=== PATIENT | male | born 1970 | race Caucasian/White ===

== ENCOUNTER 2024-03-03 13:48 | Emergency (ER) | payer OTHER ==
[~2024-03-03] VITALS: Ht 167.6 cm; Wt 149.7 kg
[2024-03-03 13:55] VITALS: BP 142/83; PULSE 74; RESP 18; TEMP 98.5; O2SAT 97
[2024-03-03] MEDS ORDERED: NAPR-1704 PO (14:31)
[2024-03-03] MEDS ORDERED: GABA300C PO (14:31)
[2024-03-03] MEDS: GABAPENTIN 300 MG CAP PO ONE (14:38)
[2024-03-03] MEDS: KETOROLAC 30 MG/ML VIAL IM ONE (14:39)
[2024-03-03 14:57] VITALS: BP 135/82; PULSE 66; RESP 16; TEMP 98.1; O2SAT 99
== END 2024-03-03 14:57 | disposition home or self-care (01) ==
LOC: MED 13:48
DX: M79.2 Neuralgia and neuritis, unspecified (principal); E11.9 Type 2 diabetes mellitus without complications; Z79.899 Other long term (current) drug therapy
CPT/HCPCS: 96372; 99283; J1885